=== PATIENT | female | born 1985 | race Caucasian/White ===

== ENCOUNTER → 2023-11-24 17:53 | Outpatient (REF) | payer OTHER, SELFPAY | LOC: WDC 17:53 | PROVIDERS: ATTENDING PHYSICIAN Family Medicine | DX: N64.89 Other specified disorders of breast (principal) | CPT/HCPCS: 77061; 77065 ==

== ENCOUNTER → 2024-05-18 18:03 | Outpatient (REF) | payer OTHER, SELFPAY | LOC: WDC 18:03 | PROVIDERS: ATTENDING PHYSICIAN Obstetrics & Gynecology | DX: Z12.31 Encounter for screening mammogram for malignant neoplasm of breast (principal) | CPT/HCPCS: 77063; 77067 ==

== ENCOUNTER → 2024-12-27 09:53 | Outpatient (REF) | payer OTHER, SELFPAY | LOC: HWRAD 09:53 | PROVIDERS: ATTENDING PHYSICIAN Obstetrics & Gynecology Gynecology; FAMILY PHYSICIAN Hospitalist | DX: R87.619 Unspecified abnormal cytological findings in specimens from cervix uteri (principal) | CPT/HCPCS: 76830; 76856 ==

== ENCOUNTER → 2025-05-21 17:53 | Outpatient (REF) | payer OTHER, SELFPAY | LOC: WDC 17:53 | PROVIDERS: ATTENDING PHYSICIAN Obstetrics & Gynecology | DX: Z12.31 Encounter for screening mammogram for malignant neoplasm of breast (principal) | CPT/HCPCS: 77063; 77067 ==